=== PATIENT | male | born 1965 | race Two or more races ===

== ENCOUNTER → 2025-07-02 | Outpatient (CLI) | payer BC, SELFPAY ==
[2025-07-02 17:17] LABS: Prostate Specific Antigen 1.89 ng/mL (0-4.00)
== END | disposition home or self-care (01) ==
LOC: COPL 16:10
PROVIDERS: PCP Specialist; Referring Provider Specialist; Visit Provider Specialist
DX: Z12.5 Encounter for screening for malignant neoplasm of prostate (principal)
CPT/HCPCS: 36415; 84153